=== PATIENT | female | born 1980 | race Caucasian/White ===

== ENCOUNTER 2020-05-29 13:30 | Inpatient (IN) | payer OTHER, SELFPAY ==
[2018-08-19 11:13] VITALS: BMI 41.3
[2020-05-29] VITALS (20 sets, daily range): BP systolic 105–162; BP diastolic 40–87; PULSE 54–86; RESP 12–21; TEMP 35.9–36.8; O2SAT 95–99; BMI 45.8
[2020-05-29 12:59] LABS: Hematocrit 33.5 % (37-47); Hemoglobin 11.1 g/dL (12.0-15.0); Mean Corp Hgb Conc 33.1 g/dL (32-36); Mean Corpuscular Hgb 29.6 pg (27.0-32.0); Mean Corpuscular Volume 89.3 fL (81-99); Mean Platelet Vol. 10.4 fl (6.2-12.0); Platelet Count 221 K/mm3 (150-450); RBC Distribution Width CV 12.4 % (11.6-14.6); RBC Distribution Width SD 40.5 fl (35.1-43.9); Red Blood Count 3.75 M/mm3 (4.2-5.4); White Blood Count 8.6 K/mm3 (4.4-11.0)
[2020-05-29 13:18] LABS: AST(SGOT) 19 U/L (15-37); Alanine Aminotransfer ALT/SGPT 31 U/L (13-56); Creatinine, Serum 0.75 mg/dL (0.55-1.02); EST Glomerular Filtration Rate 92 mL/min (>60); Est Glom Filt Rate - Afr Amer 111 mL/min (>60); Uric Acid 6.1 mg/dL (2.6-6.0)
[2020-05-29] MEDS: Lactated Ringers 1,000 ML 999 ML IV (13:45)
[2020-05-29] MEDS: Lactated Ringers 1,000 ML 150 ML IV (14:46)
[2020-05-29] MEDS: Sodium Citrate/Citric Acid 30 ML UDC PO (15:00)
[2020-05-29] MEDS: Acetaminophen 500 MG Tablet 1000 MG PO ×2 (15:02→20:47)
[2020-05-29] MEDS: Dextrose 5%-Lactated Ringers 1,000 ML 150 ML IV (15:55)
[2020-05-29 16:10] LABS: Bedside Glucose 56 mg/dL (70-110)
--- NOTE | 2020-05-29 16:50 | FALS_PTH ---
PATIENT: MARGARET MEDELLIN LOC: [facility] U#:[id number] AGE/SX: 39/F ROOM: WP009 RE05/29/[address]: Dr. Arcadio Stewart MD : [id number] BED: 1 DIS: 06/01/2020 SPEC #: [id number] RECD: 05/29/20 20:34 STATUS: JAMIE KASANDRA #: [id number] ADITYA: 05/29/20 16:[address]: Arcadio Stewart DEPT: SURGICAL PATHOLOGY RECD BY: Susan Mcginnis ENTERED: 05/30/20 09:59 SP TYPE: FALL TUBES OTHR DR: Dr. Talisha Martinez MD Tissues: Fallopian tube Procedures: Surgery Specimen Level II HEADER OPERATION: Tubal ligation PRE-OP DIAGNOSIS: Sterilization TISSUE SUBMITTED: Fallopian tubes, suture in right tube MICROSCOPIC DIAGNOSIS Bilateral fallopian tubes, tubal ligation: Completely transected segment of bilateral fallopian tubes, no pathologic diagnosis. SJ:raina 05/31/20 MICROSCOPIC DESCRIPTION Slides are reviewed. GROSS DESCRIPTION Received in fixative is one container labeled with the patient's name and designated bilateral fallopian tubes, right with suture. The specimen consists of two tubular pieces of gallardo soft tissue with the right identified with a suture. The right fallopian tube measures 1 cm in length and 0.6 cm in diameter. The left fallopian tube measures 0.7 cm in length and 0.7 cm in diameter. The entire specimen is submitted in two cassettes as follows: 1 - right fallopian tube, 2 - left fallopian tube. Both pieces will be sectioned at the time of embedding. / MARCIO:raina 05/30/20 TC:4 CPT: 89171 x2
--- NOTE | 2020-05-29 18:01 | PCM.HP.OB ---
History Date of Admission: 05/29/20 Final JONE: 06/15/20 Gestational age: 37 Weeks and 4 Days History of this : This is a 39 year-old, G [], P [], at 37 weeks gestational age. Medical History: Medical History (Last Reviewed 08/19/18 @ 11:12 by Patience Newton) Back problem M53.9 Chronic headaches R51 Diabetes type 2, controlled E11.9 Dx : 1994 Last exacerbation : DKA : never Hypoglycemic episode : never ER visit : never Seasonal allergies J30.2 Surgical History: Surgical History (Last Reviewed 08/19/18 @ 11:12 by Patience Newton) H/O knee surgery Z98.890 H/O: Z98.891 x 3 Hx of cholecystectomy Z90.49 Allergies No Known Allergies Allergy (Unverified 05/29/20 13:41) Home Medications: Home Medications blood sugar diagnostic See Dose Instructions .ROUTE .MEDSUPPLY #20 ea 11/11/17 prenat.vits,cory,wff-vdvu-dvdrn 1 tab PO QDAY 11/11/17 insulin lispro 100 unit/mL subcutaneous pen See Rx Instructions SC TID #60 ml 02/08/18 insulin glargine 100 unit/mL subcutaneous solution 88 unit SC QHS ml 08/19/18 Claritin 10 mg PO DAILY 05/29/20 Magnesium 1 tab PO DAILY 05/29/20 Vitamin B-6 1 tab PO DAILY 05/29/20 Smoking Status: Never smoker Number of Fetus(es): 1 History Past Pregnancies: Past Pregnancies Delivery Date Name GA/ Weeks Outcome Route Wt Sex Labor Length Anesthesia Delivery Location Provider FOB Labs: See [facility] Physical Exam Vitals: Vital Signs Temp Pulse Resp BP Pulse Ox 98.9 F 84 18 156/81 H 98 05/29/20 14:55 05/29/20 14:55 05/29/20 14:55 05/29/20 14:55 05/29/20 14:55 General: Alert, Oriented x3 Cardiovascular: Regular rate, Regular Rhythm Lungs: Clear to auscultation, Normal air movement Abdomen: Soft, Non Tender, Non-Distended, Gravid Neurological: Cranial nerves II-XII grossly intact SONAR SUBSYSTEM EQUIPMENT OPERATOR: Normal external genitalia Estimated gestational size: Large for gestational age Presentation: Cephalic Assessment/Plan All Active Problems (Last Reviewed 08/19/18 @ 11:12 by Patience Newton) Diabetes mellitus type 2, controlled, without complications (Acute) This is a 39 year-old, , at 37&4 weeks gestational age. Admit to L&D. Gestational hypertension - BP's mildly elevated & labs normal other than uric acid. Will monitor for symptoms of preeclampsia. Pregestational DM - patient has been followed by MFM & endocrinology (). Will resume prepregnancy insulin regimen PP per Proceed with repeat for gestational hypertension & pregestational DM. Informed consent signed. Pre-op antibiotics ordered.
[2020-05-29] MEDS: Oxytocin 30 units/NS 500 ml 30 UNITS/500 ML IV.SOLN 167 UNITS IV (18:10)
--- NOTE | 2020-05-29 18:13 | PCM.OPRPT ---
Report of Operation Surgery/Procedure Performed:: Repeat low transverse section with tubal sterilization (via partial salpingectomy) Description of Surgical Findings:: Normal maternal uterus & adnexa Some scar tissue involving the rectus muscle tyre finisher and examiner: Mark Bauer tyre finisher and examiner: Kaleigh Nunez Type of Anesthesia:: Spinal Delivery Classification: Scheduled Final JONE: 06/15/20 Gestational age: 37 Weeks and 4 Days Date of Procedure: 05/29/20 Pre-Operative Diagnosis: (1) Gestational hypertension (2) Pregestational diabetes mellitus (3) Prior section (4) Sterilization request Post-Operative Diagnosis: Same Indications for : Repeat Elective , Desires elective sterilization Description of Procedure: Patient taken to OR where spinal anesthesia was placed. She was prepped and draped in the normal sterile fashion in a dorsal supine position with a leftward tilt. After ensuring adequacy of anesthesia the Pfannensteil skin incision was made and carried through to the underlying fascia with a scalpel. The fascia was incised in the midline and carried laterally with the Gordon scissors. The rectus muscles were just to left of the midline after careful dissection through some scar tissue involving the rectus muscle. The peritoneum was grasped with hemostats & entered sharply but carefully. The uterus was incised in a transverse fashion and then incision extended with cephalocaudad traction. The fetus was vertex and the head was elevated to the uterine incision. With fundal pressure the head delivered. head was gently guided to allow delivery of anterior and posterior shoulders. No excess traction placed on head. Body delivered and 3VC clamped & cut in delayed fashion. Then the infant was handed off to the waiting RN. The placenta was delivered with gentle traction and fundal massage and the uterus was exteriorized and cleared of all clots and debris. The uterine incision was closed with 1 vicryl suture in a running locked fashion. The bovie was used to further obtain further hemostasis of the uterine incision. 2 additional figure of eight sutures were placed on the right side of the uterine incision to obtain hemostasis. The uterus was returned to the peritoneal cavity. Attention then turned to the fallopian tubes. Right fallopian tube grasped with a samantha, doubly suture ligated and tubal segment excised. This procedure was repeat on the left fallopian tube. Tubal ligation sites were both checked and confirmed hemostatic with sutures intact. The pelvis was irrigated & then cleared of all clots and debris. 3 additional figure of eight sutures were placed on the uterine incision to further obtain excellent hemostasis. The uterine incision was reexamined and found to be hemostatic. Some zakiya was placed over the uterine incision due to the denuded areas. The fascia was closed with looped PDS suture in a running standard fashion. The subcutaneous tissue was examined & any bleeding bovie cauterized. The subcutaneous tissue was reapproximated with plain gut suture. The skin was closed in a subcuticular fashion by the LEAD MANUFACTURING ENGINEER with me present in the labor and delivery suite. I performed the remainder of the procedure w/ assistance. Amniotic Membrane Rupture Type: Artificial Amniotic Fluid Description: Clear Placenta Disposition: [facility] Drain: Branch to straight drain Fluids Replaced: 1,000ml Cord Entanglement: None Cord Vessel Description: 3 Vessels Esitmated Blood Loss (ml): 900ml Gender: Female - Mena, weight = 8-15 (1 minute): 8 (5 minute): 8 Delayed cord clamping: Yes Antibiotic Given: Ancef 3 grams IV x1 Complications: None - Admit VTE Documentation VTE Present on Admission: No
--- NOTE | 2020-05-29 18:47 | MDS.RN ---
second zakiya use by date 01/04/2025
--- NOTE | 2020-05-29 18:58 | NURSING ---
Pts BG 113 with pts own device. Per Dr. Terry almazan to use dexcom G6 device for pt blood sugars
[2020-05-29] MEDS: Lactated Ringers 500 ML 999 ML IV (19:02)
[2020-05-29 20:35] LABS: Pathology Specimen OB SEE PATHOLOGY REPORT
[2020-05-29] MEDS: NIFEdipine 10 MG Capsule PO (21:19)
[2020-05-29] MEDS: Lactated Ringers 1,000 ML 100 ML IV (21:45)
--- NOTE | 2020-05-29 22:13 | NURSING ---
pt has indwelling urinary catheter
--- NOTE | 2020-05-29 22:30 | NURSING ---
Pt replaced glucometer monitor for BGT checks, RN calibrated with pt at this time. Bedside BGT 67, pt calibrated personal machine to reflect bedside BGT. Pt denies signs and symptoms of hypoglycemia at this time.
[2020-05-29 23:10] LABS: Bedside Glucose 67 mg/dL (70-110)
[2020-05-29] MEDS: Ketorolac 30 MG/ML Syringe IV (23:47)
[2020-05-30] VITALS (19 sets, daily range): BP systolic 130–156; BP diastolic 69–78; PULSE 63–91; RESP 16–24; TEMP 36.3–36.8; O2SAT 96–99
--- NOTE | 2020-05-30 01:10 | NURSING ---
RN received phone call from pt at 0103 with pt reporting blood sugar 54 per personal glucometer. Pt requesting RN bring food to room. RN brought jello into pt room per pt request. Pt eating food at 0105. RN to come back and reassess blood sugar at 0120. Pt denies symptoms of hypoglycemia at this time.
--- NOTE | 2020-05-30 01:22 | NURSING ---
RN back into pt room to recheck blood sugar at this time. Pt reports blood sugar 56 at 0117. Pt given another jello. Denies symptoms of hypoglycemia other than feeling tired. Blood sugar per personal glucometer 57 at 0120. RN to continue to monitor and recheck with bedside BGT at 0135.
--- NOTE | 2020-05-30 01:29 | NURSING ---
Pt glucometer reading 63 at this time. RN to reassess at 0140. Pt denies symptoms of hypogylcemia at this time.
[2020-05-30] MEDS: Acetaminophen 500 MG Tablet 1000 MG PO ×4 (02:45→22:12)
[2020-05-30] MEDS: Lactated Ringers 1,000 ML 100 ML IV (02:56)
[2020-05-30] MEDS: Enoxaparin 40 MG/0.4 ML Syringe SC (05:43)
[2020-05-30] MEDS: Ketorolac 30 MG/ML Syringe IV ×3 (05:43→18:12)
[2020-05-30 06:32] LABS: Hematocrit 32.3 % (37-47); Hemoglobin 10.7 g/dL (12.0-15.0); Mean Corp Hgb Conc 33.1 g/dL (32-36); Mean Corpuscular Hgb 29.9 pg (27.0-32.0); Mean Corpuscular Volume 90.2 fL (81-99); Mean Platelet Vol. 10.2 fl (6.2-12.0); Platelet Count 215 K/mm3 (150-450); RBC Distribution Width CV 12.2 % (11.6-14.6); RBC Distribution Width SD 39.9 fl (35.1-43.9); Red Blood Count 3.58 M/mm3 (4.2-5.4); White Blood Count 11.9 K/mm3 (4.4-11.0)
--- NOTE | 2020-05-30 06:40 | NURSING ---
RN into pt room at 0605 after transferring baby to special care nursery. Pt requesting snack at this time as pt blood sugar 54. RN brought pt rudy crackers and peanut butter. 15 minute recheck per pt self monitor 66. Pt denies signs and symptoms of hypoglycemia. Glucose level 63 when RN out of room at 0635. Pt refusing further interventions at this time. RN and pt to continue to monitor.
--- NOTE | 2020-05-30 07:01 | NURSING ---
Late entry: At 0235, pt reported blood sugar 77. RN will continue to monitor and pt to update RN as needed.
--- NOTE | 2020-05-30 08:39 | PCM.PN.OB ---
Subjective: Doing well per patient and nursing staff. Ambulating and taking PO without difficulty. Branch out this am and feeling urge to urinate, passing gas. Pain controlled. Bottle feeding. Denies any headache, visual changes, chest pain, shortness of breath. increased pain or bleeding. - Physical Exam Vitals/I&O's: Vital Signs Temp Pulse Resp BP Pulse Ox 97.7 F L 80 16 144/71 H 98 05/30/20 08:01 05/30/20 08:01 05/30/20 08:01 05/30/20 08:01 05/30/20 08:01 Oxygen Delivery Method Room Air Weight: 292 lb 9.6 oz Body Mass Index (BMI) 45.8 Intake and Output for Last 24 Hours 05/28/20 05/29/20 05/30/20 23:59 23:59 23:59 Intake Total 2624.55 / 2624.55 1218.34 / 1218.34 Output Total 100 / 100 100 / 100 Balance 2524.55 / 2524.55 1118.34 / 1118.34 General: Alert, Oriented x3, Cooperative HEENT: Atraumatic, Normocephalic Neck: Trachea Midline Lungs: Clear to auscultation, Normal air movement, No rhonchi, No wheeze Cardiovascular: Regular rate, Regular Rhythm, No murmurs Abdomen: Bowel Sounds Present - Fundus firm 3 below U. Dressing dry and intact., Soft Extremities: No edema Neurological: Deep Tendon Reflexes 2+/4 and Symmetrical Psych/Mental Status: Normal Affect, Appropriate Laboratory Results 05/29/20 12:45: WBC 8.6, RBC 3.75 L, Hgb 11.1 L, Hct 33.5 L, MCV 89.3, MCH 29.6, MCHC 33.1, RDW Std Deviation 40.5, RDW Coeff of Cassi 12.4, Plt Count 221, MPV 10.4 05/29/20 12:45: Creatinine 0.75, Est GFR (MDRD) Af Amer 111, Est GFR (MDRD) Non-Af 92, Uric Acid 6.1 H, AST 19, ALT 31 05/29/20 13:45: Blood Type A POSITIVE, Antibody Screen NEGATIVE 05/29/20 15:25: POC Glucose 56 L 05/29/20 22:29: POC Glucose 67 L 05/30/20 06:25: WBC 11.9 H, RBC 3.58 L, Hgb 10.7 L, Hct 32.3 L, MCV 90.2, MCH 29.9, MCHC 33.1, RDW Std Deviation 39.9, RDW Coeff of Casis 12.2, Plt Count 215, MPV 10.2 Current Medications Acetaminophen (Acetaminophen 500 Mg Tablet) 1,000 mg PO Q6H [facility] Last Admin: 05/30/20 02:45 Dose: 1,000 mg Documented by: Bisacodyl (Bisacodyl 10 Mg Suppository) 10 mg RECTAL UD PRN PRN Reason: If no BM Dextrose (Dextrose 50%-Water 25 Gm/50 Ml Disp.Syrin) 0 gm IV X1 PRN; Protocol PRN Reason: Hypoglycemia Enoxaparin Sodium (Enoxaparin 40 Mg/0.4 Ml Syringe) 40 mg SC DAILY [facility] Last Admin: 05/30/20 05:43 Dose: 40 mg Documented by: Glucagon (Glucagon 1 Mg/Ml Syringe) 1 mg IM .X1 PRN PRN Reason: Hypoglycemia Hydrocortisone (Hydrocortisone 2.5% Crm) 1 applic TOPICAL TID PRN PRN; Protocol PRN Reason: Discomfort Lactated Ringer's () 1,000 mls @ 100 mls/hr IV .Q10H [facility] Last Infusion: 05/30/20 06:15 Dose: Infused Documented by: Ibuprofen (Ibuprofen 600 Mg Tablet) 600 mg PO Q6 [facility] Insulin Glargine (Insulin Glargine 100 Units/Ml Pen) 20 units SC QHS [facility] Last Admin: 05/29/20 22:39 Dose: 20 units Documented by: Insulin Human Lispro (Insulin Lispro 100 Unit/Ml Insuln.Pen) [address] [facility]; Protocol Last Admin: 05/29/20 22:40 Dose: Not Given Documented by: Ketorolac Tromethamine (Ketorolac 30 Mg/Ml Syringe) 30 mg IV Q6 [facility] Stop: 05/30/20 18:01 Last Admin: 05/30/20 05:43 Dose: 30 mg Documented by: Methylergonovine Maleate (Methylergonovine 0.2 Mg/Ml Ampul) 0.2 mg IM X1 PRN PRN Reason: Uterine Atony Ondansetron HCl (Ondansetron 4 Mg/2 Ml Vial) 4 mg IV Q4H PRN PRN PRN Reason: Nausea Oxycodone HCl (Oxycodone 5 Mg Tablet) 5 - 10 mg PO Q4H PRN PRN PRN Reason: Pain Score 4-10 Prochlorperazine Edisylate (Prochlorperazine 10 Mg/2 Ml Vial) 10 mg IV Q6H PRN PRN PRN Reason: NAUSEA Senna/Docusate Sodium (Senna/Docusate Sodium 1 Tablet) 0 tablet PO DAILY DHIRAJ Simethicone (Simethicone 80 Mg Tablet) 80 mg PO PCHS PRN PRN Reason: Indigestion/stomach pain Sodium Chloride (0.9% Saline Lock 10 Ml Syringe) 5 - 15 ml IV UD PRN PRN Reason: SALINE FLUSH Medical Necessity - Tobacco Use Smoking Status: Never smoker Assessment/Plan All Active Problems (Last Reviewed 08/19/18 @ 11:12 by Patience Newton) Diabetes mellitus type 2, controlled, without complications (Acute) A:POD #1 Section DM type 2 Gestational HTN P: 1) BP elevated 140s/70s. One dose of procardia 10mg PO once given around 2200. Will consult regarding elevated BP and will start Procardia XR 30 mg PO once daily. No signs of preeclampsia at this time. 2) BS stable, BS 70 while in room with patient. She will contact manager shipping regarding return to prepregnancy carb count sliding scale. 3) Pain management 4) Planning D/C tomorrow
[2020-05-30] MEDS: Senna/Docusate Sodium 1 Tablet PO (08:44)
[2020-05-30] MEDS: 0.9% Saline Lock 10 ML Syringe IV ×2 (12:06→18:12)
[2020-05-30] MEDS: NIFEdipine 30 MG Tablet PO (12:13)
[2020-05-30] MEDS: Ibuprofen 600 MG Tablet PO (23:53)
[2020-05-31 02:54] VITALS: BP 135/64; BP 148/70; PULSE 77; RESP 18; TEMP 36.8
[2020-05-31] MEDS: Acetaminophen 500 MG Tablet 1000 MG PO ×4 (04:37→22:28)
[2020-05-31] MEDS: Ibuprofen 600 MG Tablet PO ×3 (06:13→18:39)
[2020-05-31 08:00] VITALS: BP 137/62; PULSE 82; RESP 18; TEMP 36.6
[2020-05-31] MEDS: Senna/Docusate Sodium 1 Tablet PO (09:20)
--- NOTE | 2020-05-31 09:31 | PN.OBGYN_ITS ---
Subjective: Patient doing well. Ambulating and voiding without difficulty. Tolerating regular diet without nausea or vomiting. Denies lightheadedness, dizziness, chest pain, leg pain. - Physical Exam Vitals/I&O's: Vital Signs Temp Pulse Resp BP Pulse Ox 97.8 F 82 18 137/62 H 98 05/31/20 08:00 05/31/20 08:00 05/31/20 08:00 05/31/20 08:00 05/30/20 17:15 Oxygen Delivery Method Room Air Weight: 292 lb 9.6 oz Body Mass Index (BMI) 45.8 Intake and Output for Last 24 Hours 05/29/20 05/30/20 05/31/20 23:59 23:59 23:59 Intake Total 2624.55 / 2624.55 1218.34 / 1218.34 Output Total 100 / 100 1450 / 1450 Balance 2524.55 / 2524.55 -231.66 / -231.66 General: Alert, No apparent distress HEENT: Atraumatic Abdomen: Soft, Non Tender, Non-Distended, - - FF@U Extremities: No Calf Tenderness, Edema Skin: No rashes Neurological: Neuro grossly intact Psych/Mental Status: Normal Affect, Appropriate Current Medications Acetaminophen (Acetaminophen 500 Mg Tablet) 1,000 mg PO Q6H [facility] Last Admin: 05/31/20 09:19 Dose: 1,000 mg Documented by: Bisacodyl (Bisacodyl 10 Mg Suppository) 10 mg RECTAL UD PRN PRN Reason: If no BM Dextrose (Dextrose 50%-Water 25 Gm/50 Ml Disp.Syrin) 0 gm IV X1 PRN; Protocol PRN Reason: Hypoglycemia Enoxaparin Sodium (Enoxaparin 40 Mg/0.4 Ml Syringe) 40 mg SC DAILY [facility] Last Admin: 05/30/20 05:43 Dose: 40 mg Documented by: Glucagon (Glucagon 1 Mg/Ml Syringe) 1 mg IM .X1 PRN PRN Reason: Hypoglycemia Hydrocortisone (Hydrocortisone 2.5% Crm) 1 applic TOPICAL TID PRN PRN; Protocol PRN Reason: Discomfort Ibuprofen (Ibuprofen 600 Mg Tablet) 600 mg PO Q6 [facility] Last Admin: 05/31/20 06:13 Dose: 600 mg Documented by: Insulin Glargine (Insulin Glargine 100 Units/Ml Pen) 20 units SC QHS [facility] Last Admin: 05/30/20 22:14 Dose: 20 units Documented by: Insulin Human Lispro (Insulin Lispro 100 Unit/Ml Insuln.Pen) 0 unit SC [facility]; Protocol Last Admin: 05/31/20 08:49 Dose: Not Given Documented by: Methylergonovine Maleate (Methylergonovine 0.2 Mg/Ml Ampul) 0.2 mg IM X1 PRN PRN Reason: Uterine Atony Nifedipine (Nifedipine 30 Mg Tablet) 30 mg PO DAILY [facility] Last Admin: 05/30/20 12:13 Dose: 30 mg Documented by: Ondansetron HCl (Ondansetron 4 Mg/2 Ml Vial) 4 mg IV Q4H PRN PRN PRN Reason: Nausea Oxycodone HCl (Oxycodone 5 Mg Tablet) 5 - 10 mg PO Q4H PRN PRN PRN Reason: Pain Score 4-10 Prochlorperazine Edisylate (Prochlorperazine 10 Mg/2 Ml Vial) 10 mg IV Q6H PRN PRN PRN Reason: NAUSEA Senna/Docusate Sodium (Senna/Docusate Sodium 1 Tablet) 0 tablet PO DAILY [facility] Last Admin: 05/31/20 09:20 Dose: 1 tablet Documented by: Simethicone (Simethicone 80 Mg Tablet) 80 mg PO HS PRN PRN Reason: Indigestion/stomach pain Sodium Chloride (0.9% Saline Lock 10 Ml Syringe) 5 - 15 ml IV UD PRN PRN Reason: SALINE FLUSH Last Admin: 05/30/20 18:12 Dose: 10 ml Documented by: Medical Necessity - Tobacco Use Smoking Status: Never smoker Assessment/Plan All Active Problems (Last Reviewed 08/19/18 @ 11:12 by Patience Newton) Diabetes mellitus type 2, controlled, without complications (Acute) POD#2 s/p C/S - Post op: HDS. Doing well. Pain controlled. Continue routine post op care - Type 2 DM: She contacted endo yesterday regarding plan of care. Blood sugars 90's. Has follow up with endo next week - gHTN: Procardia 30 started yesterday. BP's well controlled. Continue to monitor for symptoms of pre-e - Baby in special care nursery - Dispo: Cont routine care
[2020-05-31] MEDS: NIFEdipine 30 MG Tablet PO (10:17)
[2020-05-31] MEDS: Enoxaparin 40 MG/0.4 ML Syringe SC (10:17)
[2020-05-31] MEDS: Insulin Lispro 100 UNIT/ML INSULN.PEN SC ×2 (12:14→18:56)
[2020-05-31 14:50] VITALS: BP 142/71; PULSE 70; RESP 18; TEMP 36.4
--- NOTE | 2020-05-31 20:28 | PN_ITS ---
Progress Note Patient reports she called her calibration engineer and she was given a carb counting ratio of 2.5 units breakfast, 2.7 units lunch, and 2.5 units dinner. Reviewed patient's chart in [facility]. There is no documentation of her prepregnancy insulin regimen. There is also no documentation from her calibration engineer prepregnancy or . Discussed with pharmacy and unable to order carb counting. We will continue with Lantus at bedtime and a sliding scale for coverage for now.
--- NOTE | 2020-05-31 20:28 | PCM.PN.BLA ---
Progress Note Patient reports she called her environmental services project manager and she was given a carb counting ratio of 2.5 units breakfast, 2.7 units lunch, and 2.5 units dinner. Reviewed patient's chart in [facility]. There is no documentation of her prepregnancy insulin regimen. There is also no documentation from her environmental services project manager prepregnancy or . Discussed with pharmacy and unable to order carb counting. We will continue with Lantus at bedtime and a sliding scale for coverage for now.
[2020-05-31 21:14] VITALS: BP 146/74; PULSE 62; RESP 16; TEMP 36.9
[2020-06-01] MEDS: Ibuprofen 600 MG Tablet PO ×3 (00:08→10:50)
[2020-06-01 02:06] VITALS: BP 138/69; PULSE 77; RESP 16; TEMP 37.1
[2020-06-01] MEDS: Acetaminophen 500 MG Tablet 1000 MG PO ×2 (04:55→10:50)
[2020-06-01 08:00] VITALS: BP 127/61; PULSE 58; RESP 16; TEMP 36.4; O2SAT 98
--- NOTE | 2020-06-01 08:16 | NURSING ---
Redness noted above dressing on abdomen extending entire length of incision. Pt. states Dr. Ponce observed yesterday and area is without warmth and tenderness. Dr. Stewart notified and will assess.
--- NOTE | 2020-06-01 08:53 | PN.OBGYN_ITS ---
Subjective: Pain controlled. No complaints. - Physical Exam Vitals/I&O's: Vital Signs Temp Pulse Resp BP Pulse Ox 97.6 F L 58 L 16 127/61 H 98 06/01/20 08:00 06/01/20 08:00 06/01/20 08:00 06/01/20 08:00 06/01/20 08:00 Oxygen Delivery Method Room Air Weight: 292 lb 9.6 oz Body Mass Index (BMI) 45.8 Intake and Output for Last 24 Hours 05/30/20 05/31/20 06/01/20 23:59 23:59 23:59 Intake Total 1218.34 / 1218.34 1000 / 1000 Output Total 1450 / 1450 Balance -231.66 / -231.66 1000 / 1000 General: Alert, Oriented x3 Abdomen: Soft, Non Tender, Non-Distended - ff mid & below umb; scant erythema around the bandage that is c/d/i Extremities: No Calf Tenderness Current Medications Acetaminophen (Acetaminophen 500 Mg Tablet) 1,000 mg PO Q6H [facility] Last Admin: 06/01/20 04:55 Dose: 1,000 mg Documented by: Bisacodyl (Bisacodyl 10 Mg Suppository) 10 mg RECTAL UD PRN PRN Reason: If no BM Dextrose (Dextrose 50%-Water 25 Gm/50 Ml Disp.Syrin) 0 gm IV X1 PRN; Protocol PRN Reason: Hypoglycemia Enoxaparin Sodium (Enoxaparin 40 Mg/0.4 Ml Syringe) 40 mg SC DAILY [facility] Last Admin: 05/31/20 10:17 Dose: 40 mg Documented by: Glucagon (Glucagon 1 Mg/Ml Syringe) 1 mg IM .X1 PRN PRN Reason: Hypoglycemia Hydrocortisone (Hydrocortisone 2.5% Crm) 1 applic TOPICAL TID PRN PRN; Protocol PRN Reason: Discomfort Ibuprofen (Ibuprofen 600 Mg Tablet) 600 mg PO Q6 [facility] Last Admin: 06/01/20 04:55 Dose: 600 mg Documented by: Insulin Glargine (Insulin Glargine 100 Units/Ml Pen) 20 units SC QHS [facility] Last Admin: 05/31/20 22:29 Dose: 20 units Documented by: Insulin Human Lispro (Insulin Lispro 100 Unit/Ml Insuln.Pen) 0 unit SC ACHS [facility]; Protocol Last Admin: 10/23/20 08:46 Dose: Not Given Documented by: Methylergonovine Maleate (Methylergonovine 0.2 Mg/Ml Ampul) 0.2 mg IM X1 PRN PRN Reason: Uterine Atony Nifedipine (Nifedipine 30 Mg Tablet) 30 mg PO DAILY [facility] Last Admin: 05/31/20 10:17 Dose: 30 mg Documented by: Ondansetron HCl (Ondansetron 4 Mg/2 Ml Vial) 4 mg IV Q4H PRN PRN PRN Reason: Nausea Oxycodone HCl (Oxycodone 5 Mg Tablet) 5 - 10 mg PO Q4H PRN PRN PRN Reason: Pain Score 4-10 Prochlorperazine Edisylate (Prochlorperazine 10 Mg/2 Ml Vial) 10 mg IV Q6H PRN PRN PRN Reason: NAUSEA Senna/Docusate Sodium (Senna/Docusate Sodium 1 Tablet) 0 tablet PO DAILY [facility] Last Admin: 05/31/20 09:20 Dose: 1 tablet Documented by: Simethicone (Simethicone 80 Mg Tablet) 80 mg PO PCHS PRN PRN Reason: Indigestion/stomach pain Sodium Chloride (0.9% Saline Lock 10 Ml Syringe) 5 - 15 ml IV UD PRN PRN Reason: SALINE FLUSH Last Admin: 05/30/20 18:12 Dose: 10 ml Documented by: Medical Necessity - Tobacco Use Smoking Status: Never smoker Assessment/Plan All Active Problems (Last Reviewed 08/19/18 @ 11:12 by Patience Newton) Diabetes mellitus type 2, controlled, without complications (Acute) POD#3 DM - BS overall well controlled. Patient will manage insulin and follow with (endo). Abdominal erythema - suspect yeast vx skin irritation from c/s drape. Rx kenalog & nystatin powder given. Gestational hypertension - d/c home on procardia XL Reviewed precautions and patient to f/u next week
--- NOTE | 2020-06-01 09:00 | DCINST_ITS ---
Discharge Diet: Carb Control Diet Discharge Activity: May not drive while taking narcotic pain medications., May Shower May resume sexual activity in: 6 weeks Call your doctor if your incision/area has: Continuous Slow Oozing, Sudden Increased Bleeding, Increased Pain/ Swelling, Increased Redness, Foul Smelling Discharge, Swelling at the incision site Additional Instructions: If you experience any of the following, contact your healthcare provider. * Bleeding that soaks a pad every hour for 2 hours * Fever 100.4 or higher * Unrelieved incision or abdominal pain * Swelling, redness, discharge or bleeding from your incision or episiotomy site * Your incision begins to separate * Problems urinating (including inability to urinate or burning while urinating). * Visual changes * Severe headache * Flu-like symptoms * Pain or redness in one of both of your breasts * Pain, warmth, tenderness or swelling in your legs, especially the calf area * Frequent nausea and vomiting * Symptoms of depression or anxiety If you experience any of the following, call 911 or go to the nearest Emergency Room. * Chest pain * Problems breathing * Seizure activity * Partial or complete paralysis of a body part, slurred speech, weakness or drooping of the face, or a sudden inability to walk or hold your balance Contact for glucose management Allergies/Adverse Reactions: Allergies No Known Allergies Allergy (Unverified 05/29/20 13:41) Medications to take at Discharge blood sugar diagnostic See Dose Instructions .ROUTE .MEDSUPPLY #20 ea 11/11/17 prenat.vits,cory,[id number] 1 tab PO QDAY 11/11/17 Claritin 10 mg PO DAILY 05/29/20 Acetaminophen [Tylenol] 1,000 mg PO Q6H tab 06/01/20 Ibuprofen [Motrin] 600 mg PO Q6 tab 06/01/20 Insulin Glargine [Lantus SoloStar Pen] 20 units SC QHS pen 06/01/20 Insulin Lispro [Humalog KwikPen] See Protocol SC ACHS insuln.pen 06/01/20 Nifedipine [Nifedipine ER] 30 mg PO DAILY #30 tab.er.24 06/01/20 Nystatin Powder [Mycostatin Powder] 1 applic TOPICAL BID #1 bottle 06/01/20 Oxycodone [Oxyir] 5 mg PO Q6H PRN PRN 2 Days #5 tablet 10/23/20 Triamcinolone 0.1% Cream [Kenalog] 1 applic TOPICAL BID #1 tube 06/01/20 The following prescriptions were given: Triamcinolone 0.1% Cream [Kenalog] 1 applic TOPICAL BID #1 tube Prescription Printed Nystatin Powder [Mycostatin Powder] 1 applic TOPICAL BID #1 bottle Prescription Printed Nifedipine [Nifedipine ER] 30 mg PO DAILY #30 tab.er.24 Transmission Status: Pending to [place] [id number] Oxycodone [Oxyir] 5 mg PO Q6H PRN PRN 2 Days #5 tablet PRN Reason: Pain Score 4-10 Transmission Status: [place] [id number] Follow-Up: Call to make an appointment with your doctor for an incision check in 1-2 weeks. You will also need a 6 week post- follow up appointment. Test results from this visit will be discussed in further detail at your follow- up appointment, if applicable. Primary Care Physician: Talisha Martinez MD [Primary Care Provider] -
[2020-06-01] MEDS: Nystatin/Triamcin Cream Tube 1 APPLIC TOPICAL (09:41)
[2020-06-01] MEDS: Senna/Docusate Sodium 1 Tablet PO (09:42)
[2020-06-01] MEDS: NIFEdipine 30 MG Tablet PO (09:42)
[2020-06-01] MEDS: Enoxaparin 40 MG/0.4 ML Syringe SC (09:42)
[2020-06-01] MEDS: Insulin Lispro 100 UNIT/ML INSULN.PEN SC (11:08)
[2020-06-01 12:20] VITALS: BP 144/77; PULSE 66; RESP 16; TEMP 36.3
--- NOTE | 2020-06-05 11:48 | DS.PCM_ITS ---
Discharge Date and Diagnosis Date of Admission: 05/29/20 Date of Discharge: 06/01/20 Hospital Course and Treatment Summary of Care Provided: The patient is a 39 year old Female who was admitted for a repeat with tubal sterilization - see operative report. Hospital course is as follows. Gestational hypertension - BP's were well controlled on Procardia XL (30mg). Diabetes mellitus - patient restarted prepregnancy lantus and uses SS insulin. 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 - fletcher removed POD#1 and no issues. GI - patient was tolerating a regular diet at time of discharge. ID - AF, no signs infection. Heme - HDS. Discharged to home on POD#3. - Physical Exam Vitals/I&O's: Vital Signs Temp Pulse Resp BP Pulse Ox 97.3 F L 66 16 144/77 H 98 06/01/20 12:20 06/01/20 12:20 06/01/20 12:20 06/01/20 12:20 06/01/20 08:00 Oxygen Delivery Method Room Air Weight: 292 lb 9.6 oz Body Mass Index (BMI) 45.8 Discharge Diet: Carb Control Diet Discharge Activity: May not drive while taking narcotic pain medications., May Shower May resume sexual activity in: 6 weeks Call your doctor if your incision/area has: Continuous Slow Oozing, Sudden Increased Bleeding, Increased Pain/ Swelling, Increased Redness, Foul Smelling Discharge, Swelling at the incision site Home Medications: Medications to take at Discharge blood sugar diagnostic See Dose Instructions .ROUTE .MEDSUPPLY #20 ea 11/11/17 prenat.vits,cory,[id number] 1 tab PO QDAY 11/11/17 Claritin 10 mg PO DAILY 05/29/20 Acetaminophen [Tylenol] 1,000 mg PO Q6H tab 06/01/20 Ibuprofen [Motrin] 600 mg PO Q6 tab 06/01/20 Insulin Glargine [Lantus SoloStar Pen] 20 units SC QHS pen 06/01/20 Insulin Lispro [Humalog KwikPen] See Protocol SC ACHS insuln.pen 06/01/20 Nifedipine [Nifedipine ER] 30 mg PO DAILY #30 tab.er.24 06/01/20 Nystatin Powder [Mycostatin Powder] 1 applic TOPICAL BID #1 bottle 06/01/20 Triamcinolone 0.1% Cream [Kenalog] 1 applic TOPICAL BID #1 tube 06/01/20 Following Prescriptions Were Given to Patient: Triamcinolone 0.1% Cream [Kenalog] 1 applic TOPICAL BID #1 tube Prescription Printed Nystatin Powder [Mycostatin Powder] 1 applic TOPICAL BID #1 bottle Prescription Printed Nifedipine [Nifedipine ER] 30 mg PO DAILY #30 tab.er.24 Transmission Status: Received by [id number] Primary Care Physician: Talisha Martinez MD [Primary Care Provider] - Medical Necessity - Tobacco Use Smoking Status: Never smoker Meaningful Use Info Meaningful Use Diagnoses (Choose all that apply): None applicable
== END 2020-06-01 12:35 | disposition home or self-care (01) | DRG 785 ==
LOC: OBT 14:27 → WP 14:27
PROVIDERS: Admitting Provider Obstetrics & Gynecology; PCP Family Medicine; Visit Provider Obstetrics & Gynecology
DX: O24.12 Pre-existing type 2 diabetes mellitus, in childbirth (principal); O13.4 Gestational [pregnancy-induced] hypertension without significant proteinuria, complicating childbirth; E11.9 Type 2 diabetes mellitus without complications; Z3A.37 37 weeks gestation of pregnancy; Z37.0 Single live birth; Z79.4 Long term (current) use of insulin
CPT/HCPCS: 36415; 59025; 59050; 82565; 82962; 84450; 84460; 84550; 85027; 86850; 86900; 86901; 88302; 99218; 99251; J7120; A4216; G0378; G0463; J2405

== ENCOUNTER → 2020-05-29 | Outpatient (CLI) | payer OTHER, SELFPAY ==
[2018-08-19 11:13] VITALS: BMI 41.3
== END | disposition home or self-care (01) ==
LOC: MTDU 05-30 09:58
PROVIDERS: PCP Family Medicine; Referring Provider Obstetrics & Gynecology; Visit Provider Obstetrics & Gynecology
DX: Z11.59 Encounter for screening for other viral diseases (principal)
CPT/HCPCS: 87635; C9803; U0003